=== PATIENT | female | born 1970 | race Caucasian/White ===

== ENCOUNTER 2019-09-10 10:02 | Emergency (ER) | payer MEDICAID, OTHER ==
[~2019-09-10] VITALS: Ht 157.5 cm; Wt 99.8 kg
[2019-09-10 13:01] VITALS: BP 153/85
== END 2019-09-10 13:32 | disposition home or self-care (01) ==
LOC: ER 10:02
DX: S93.402A Sprain of unspecified ligament of left ankle, initial encounter (principal); I10 Essential (primary) hypertension; Z88.8 Allergy status to other drugs, medicaments and biological substances; W10.9XXA Fall (on) (from) unspecified stairs and steps, initial encounter; Y93.89 Activity, other specified; Y92.89 Other specified places as the place of occurrence of the external cause; Y99.8 Other external cause status
CPT/HCPCS: 73610

== ENCOUNTER 2019-09-20 16:26 | Emergency (ER) | payer MEDICAID ==
[~2019-09-20] VITALS: Ht 154.9 cm; Wt 104.3 kg
[2019-09-20 16:41] VITALS: BP 168/83
== END 2019-09-20 18:22 | disposition home or self-care (01) ==
LOC: ER 16:34
DX: S86.912A Strain of unspecified muscle(s) and tendon(s) at lower leg level, left leg, initial encounter (principal); M79.662 Pain in left lower leg; I10 Essential (primary) hypertension; W18.30XA Fall on same level, unspecified, initial encounter; Y93.01 Activity, walking, marching and hiking; Y92.89 Other specified places as the place of occurrence of the external cause; Y99.8 Other external cause status
CPT/HCPCS: 93971

== ENCOUNTER 2020-05-28 02:47 | Emergency (ER) | payer MEDICAID ==
[~2020-05-28] VITALS: Ht 157.5 cm; Wt 99.8 kg
[2020-05-28] MEDS ORDERED: cloNIDine HCL 0.1 MG TAB PO ONE (03:45)
[2020-05-28 04:32] LABS: Basophils # (auto) 0.1 10 ^3/uL (0-0.2); Basophils % (auto) 0.9 % (0.0-2.0); Eosinophils # (auto) 0.2 10 ^3/uL (0-0.8); Hemoglobin 13.5 g/dL (12.2-16.2); Lymphocytes # (auto) 1.9 10 ^3/uL (0.4-5.4); Mean Corpuscular Hemoglobin 27.7 pg (28.0-32.0); Mean Corpuscular Hgb Conc. 32.9 g/dL (32.0-36.0); Mean Corpuscular Volume 84.4 fL (80.0-100.0); Monocytes # (auto) 0.7 10 ^3/uL (0-1.3); Monocytes % (auto) 8.7 % (0.0-12.0); Neutrophils # (auto) 5.1 10 ^3/uL (1.6-8.6); Neutrophils % (auto) 64.4 % (37.0-80.0); Platelet Count (auto) 311 10^3/uL (140-450); Red Blood Cells 4.85 10^6/uL (4.0-5.20); Red Cell Distribution Width 13.9 % (11.8-14.3)
[2020-05-28 04:47] LABS: INR 1.01 (0.9-1.15); Partial Thromboplastin Time 27.4 sec (23.0-31.2)
[2020-05-28 04:53] LABS: Albumin 3.5 g/dL (3.4-5.0); Anion Gap 6 (5-15); Blood Urea Nitrogen 16 mg/dL (7-18); Calcium 8.9 mg/dL (8.5-10.1); Carbon Dioxide 27 mmol/L (21-32); Chloride 105 mmol/L (98-107); Glucose 105 mg/dL (74-106); Magnesium 2.1 mg/dL (1.6-2.6); Potassium 4.3 mmol/L (3.5-5.1); Sodium 138 mmol/L (136-145)
[2020-05-28 05:00] LABS: Alanine Aminotransferase 21 U/L (13-56); Alkaline Phosphatase 84 U/L (45-117); Aspartate Aminotransferase 12 U/L (15-37); BUN/Creatinine Ratio 23.5; Bilirubin, Total 0.2 mg/dL (0.2-1.0); GFR African American 118 mL/min; GFR Non-African American 98 mL/min; Total Protein 7.6 g/dL (6.4-8.2)
[2020-05-28 12:00] VITALS: BP 110/57
== END 2020-05-28 13:10 | disposition home or self-care (01) ==
LOC: ER 02:51
DX: I10 Essential (primary) hypertension (principal); Z88.8 Allergy status to other drugs, medicaments and biological substances
CPT/HCPCS: 36415; 71045; 80053; 83735; 83880; 84484; 85025; 85379; 85610; 85730; 93005

== ENCOUNTER 2021-11-02 09:35 | Emergency (ER) | payer MEDICAID ==
[~2021-11-02] VITALS: Ht 157.5 cm; Wt 68.0 kg
[2021-11-02 11:30] VITALS: BP 146/94
[2021-11-02 11:50] LABS: Urine Bacteria NONE SEEN /hpf (None Seen); Urine Blood 1+ /uL (Negative); Urine Mucus FEW (None Seen); Urine Specific Gravity 1.015 (1.001-1.035); Urine WBC 545 /hpf (0 - 5); Urine WBC Clumps PRESENT /hpf (None Seen)
[2021-11-02] MEDS ORDERED: CYCL-837 PO (12:11)
[2021-11-02] MEDS ORDERED: SULF800T7 PO (12:11)
[2021-11-02] MEDS ORDERED: ACET-1158 PO (12:11)
[2021-11-02] MEDS ORDERED: cefTRIAXone SOD 1,000 MG VL IM ONE (12:15)
== END 2021-11-02 12:26 | disposition home or self-care (01) ==
LOC: ER 09:35
DX: N39.0 Urinary tract infection, site not specified (principal); I10 Essential (primary) hypertension; Z98.51 Tubal ligation status
CPT/HCPCS: 72100; 81001; 93005; 96372; 99285; J0696